=== PATIENT | male | born 1985 | race Caucasian/White ===

== ENCOUNTER 2017-03-13 12:51 | Emergency (ER) | payer OTHER ==
[~2017-03-13] VITALS: Ht 175.3 cm; Wt 172.0 kg
[2017-03-13 12:59] VITALS: BP 140/92
[2017-03-13] MEDS ORDERED: COLCHICINE 0.6 MG TABLET PO ONE (14:17)
== END 2017-03-13 15:26 | disposition home or self-care (01) ==
LOC: ED 15:20
DX: M13.10 Monoarthritis, not elsewhere classified, unspecified site (principal); M10.9 Gout, unspecified
CPT/HCPCS: 36415; 84550; 99285